=== PATIENT | male | born 1965 | race African-American/Black ===

== ENCOUNTER 2021-04-20 21:12 | Emergency (ER) | payer OTHER ==
[2021-04-20 21:22] VITALS: BP 136/83; PULSE 59; RESP 20; TEMP 98.8
--- NOTE | 2021-04-20 22:45 | ED ---
Recheck HPI - General Chief Complaint: Recheck/Abnormal Lab/Rx Stated Complaint: Wants covid screening Time Seen by Provider: 04/20/21 22:44 Source: patient Mode of arrival: ambulatory Limitations: no limitations - History of Present Illness Initial Comments: 55 year-old male patient presenting to the emergency department requesting COVID-19 testing. Unknown if he had direct exposure. He denies any current symptoms, states he feels well. Denies any need for further evaluation or testing. - Related Data Home Medications Medication Instructions Recorded Confirmed No Known Home Medications 04/20/21 04/20/21 Allergies Allergy/AdvReac Type Severity Reaction Status Date / Time No Known Allergies Allergy Verified 04/20/21 21:22 Review of Systems ROS Statement: Those systems with pertinent positive or pertinent negative responses have been documented in the HPI. ROS Other: All systems not noted in ROS Statement are negative. Past Medical History Past Medical History: No Reported History History of Any Multi-Drug Resistant Organisms: None Reported Past Surgical History: No Surgical Hx Reported Past Psychological History: No Psychological Hx Reported Smoking Status: Never smoker Past Alcohol Use History: None Reported Past Drug Use History: None Reported General Exam Limitations: no limitations General appearance: alert, in no apparent distress Respiratory exam: Present: normal lung sounds bilaterally. Absent: respiratory distress, wheezes, rales, rhonchi, stridor Cardiovascular Exam: Present: regular rate, normal rhythm, normal heart sounds. Absent: systolic murmur, diastolic murmur, rubs, gallop, clicks Neurological exam: Present: alert, oriented X3 Skin exam: Present: warm, dry, normal color Course Vital Signs 04/20/21 21:19 Temperature 98.8 F Pulse Rate 59 L Respiratory 20 Rate Blood Pressure 136/83 O2 Sat by Pulse 99 Oximetry Medical Decision Making - Medical Decision Making 55-year-old male patient presented requesting COVID-19 testing. Denies any current symptoms or known exposure. Denies fever further emergency evaluation or testing. He did test negative. He is discharged with his doctor as needed. He is discharged in stable condition. My attending is Dr. Lucio. - Lab Data Lab Results 04/20/21 Range/Units 21:25 Coronavirus (PCR) Not Detected (Not Detectd) Disposition Clinical Impression: Encounter for laboratory testing for COVID-19 virus Disposition: HOME SELF-CARE Condition: Good Instructions (If sedation given, give patient instructions): Coronavirus Disease 2019 (COVID-19) Is patient prescribed a controlled substance at d/c from ED?: No Referrals: Nonstaff,Physician [Primary Care Provider] - 1-2 days Time of Disposition: 22:45
== END 2021-04-20 23:07 | disposition home or self-care (01) ==
LOC: EC 21:12
DX: Z20.822 Contact with and (suspected) exposure to COVID-19 (principal)
CPT/HCPCS: 87635; 99283